=== PATIENT | male | born 1975 | race American Indian/Alaskan Native ===

== ENCOUNTER 2018-06-06 11:06 | Inpatient (IN) | payer MEDICAID, OTHER ==
--- NOTE | 2018-06-06 11:33 | C.PDOC ---
History Of Present Illness SUICIDAL IDEATION W PLAN. HO HEROIN, CRACK ABUSE LAST USE YESTERDAY. DENIES INTENTIONAL OD. EXAM PSYCH CALM COOPERATIVE DEPRESSED +SI NO ACTIVE PSYCHOSIS, INTOX Time Seen by Provider: 06/06/18 11:19 Chief Complaint (Nursing): Psychiatric Evaluation History Per: Patient History/Exam Limitations: no limitations Onset/Duration Of Symptoms: Days Current Symptoms Are (Timing): Still Present Severity: Moderate Past Medical History Reviewed: Historical Data, Nursing Documentation, Vital Signs Vital Signs: Last Vital Signs Temp 97.6 F 06/06/18 11:11 Pulse 81 06/06/18 11:11 Resp 20 06/06/18 11:11 BP 144/90 06/06/18 11:11 Pulse Ox 98 06/06/18 13:07 - Medical History PMH: Depression Surgical History: No Surg Hx Family History: States: No Known Family Hx - Social History Hx Alcohol Use: Yes Hx Substance Use: Yes - Immunization History Hx Tetanus Toxoid Vaccination: No Hx Influenza Vaccination: No Hx Pneumococcal Vaccination: No Review Of Systems Except As Marked, All Systems Reviewed And Found Negative. Constitutional: Negative for: Fever, Chills Psych: Positive for: Suicidal ideation Physical Exam - Physical Exam Appears: No Acute Distress Skin: Normal Color, Warm, Dry Head: Atraumatic, Normacephalic Eye(s): bilateral: Normal Inspection Respiratory: Other (NARD) Neurological/Psych: Other (calm, cooperative, depressed, +SI, no active psychosis) ED Course And Treatment - Laboratory Results Result Diagrams: 06/06/18 11:34 06/06/18 11:34 ECG: Interpreted By Al ECG Rhythm: Sinus Rhythm ECG Interpretation: Normal Rate From EC O2 Sat by Pulse Oximetry: 98 (RA) Pulse Ox Interpretation: Normal Progress - Re-Evaluation Re-evaluation Note: 06/06/18 13:06 MED CLEAR FOR CRISIS EVAL. CRISIS NOTIFIED - Data Reviewed Data Reviewed: Lab, Old records Medical Decision Making Medical Decision Making: Plan: --Labs --ECG Disposition Counseled Patient/Family Regarding: Studies Performed, Diagnosis - Disposition Disposition: HOSPITALIZED Disposition Time: 13:11 Condition: STABLE Forms: [facility] (Pashto) - POA Present On Arrival: None - Clinical Impression Clinical Impression: Polysubstance abuse, Suicidal ideation - Scribe Statement The provider has reviewed the documentation as recorded by the Kathyajamila Tellez Provider Attestation: All medical record entries made by the Bessy were at my direction and personally dictated by me. I have reviewed the chart and agree that the record accurately reflects my personal performance of the history, physical exam, medical decision making, and the department course for this patient. I have also personally directed, reviewed, and agree with the discharge instructions and disposition. Decision To Admit - Pt Status Changed To: Hospital Disposition Of: Inpatient - Admit Certification Admit to Inpatient:: After my assessment, the patient will require hospitalization for at least two midnights. This is because of the severity of symptoms shown, intensity of services needed, and/or the medical risk in this patient being treated as an outpatient. - InPatient: Physician Admission Certification: I certify that this patient requires 2 or more midnights of care for the following reason:: SEE NOTE - . Bed Request Type: Psychiatry Admitting Physician: Damian Fajardo Patient Diagnosis: Polysubstance abuse, Suicidal ideation
[2018-06-06 11:43] LABS: BASO % 0.6 % (0.0-2.0); EOS # 0.1 K/uL (0.0-0.7); EOS % 2.5 % (0.0-4.0); HEMOGLOBIN 14.7 g/dL (12.0-18.0); LYMPH # 2.6 K/uL (1.0-4.3); LYMPH % 43.2 % (20.0-40.0); MEAN CORPUSCULAR HEMOGLOBIN 28.5 pg (27.0-31.0); MEAN CORPUSCULAR HGB CONC 33.5 g/dL (33.0-37.0); MEAN PLATELET VOLUME 8.3 fL (7.2-11.7); MONO # 0.4 K/uL (0.0-0.8); MONO % 7.2 % (0.0-10.0); NEUT # 2.7 K/uL (1.8-7.0); NEUT % 46.5 % (50.0-75.0); NRBC % 0.1 % (0.0-2.0); RBC 5.17 Mil/uL (4.40-5.90); RED CELL DISTRIBUTION WIDTH 14.1 % (11.5-14.5); WHITE BLOOD COUNT 5.9 K/uL (4.8-10.8)
[2018-06-06 11:51] LABS: ACETAMINOPHEN < 10.0 ug/mL (10.0-30.0); ALB/GLOB RATIO 1.8 (1.0-2.1); ALBUMIN 4.2 g/dL (3.5-5.0); ALT/SGPT 23 U/L (21-72); AST/SGOT 13 U/L (17-59); BLOOD UREA NITROGEN 15 mg/dL (9-20); CALCIUM 9.2 mg/dl (8.6-10.4); GFR NON-AFRICAN AMERICAN > 60; SALICYLATE < 1.0 mg/dL 1
[2018-06-06 12:39] LABS: BARBITURATES, UR NEGATIVE (NEGATIVE); BENZODIAZEPINES, UR NEGATIVE (NEGATIVE); OPIATES, UR NEGATIVE (NEGATIVE); PHENCYCLIDINE, UR NEGATIVE (NEGATIVE)
--- NOTE | 2018-06-06 13:56 | PCM.BM ---
<ThomasBonnie - Last Filed: 06/06/18 13:55> Treatment Plan Problems - Problems identified on initial assessmt Suicidal Ideations Date Initiated: 06/06/18 Time Initiated: 13:55 Assessment reference: NA Status: Active Depression Date Initiated: 06/06/18 Time Initiated: 13:56 Assessment reference: NA Status: Active Treatment assets and liabiliti Patient Assests: cooperative, educated, insightful, motivated, self-reliant, ADL independent, physically healthy Patient Liabilities: live alone, physical pain, poor support system, relationship conflicts, substance abuse - Milieu Protocol Maintain good personal hygiene: daily Encourage regular showers, daily Remind patient to perform daily oral care, daily Assist patient to perform ADL's Maintain personal safety: every shift Educate patient to report safety concerns to staff, every shift Monitor environment for contraband/sharps Medication safety: Monitor for expected outcome, potential side effects: every shift, Assess barriers to learning: every shift, Assess readiness for medication education: every shift <Magali Marie - Last Filed: 06/07/18 11:18> Family Contact Family involvement: Famliy/SO not involved - Goals for Treatment Patient goals for treatment: "I don't know." Discharge/Continuing Care - Education Needs Education Needs: Patient Medication, Patient Coping Skills, Patient Placement options, Patient Community resources - Discharge Discharge Criteria: Tolerates medication w/o severe side effects, No longer exhibiting s/s of withdrawal, Reduction of target symptoms Discharge to:: Home - Treatment Team Participation Discussed with Family/SO: No Was Patient/Family/SO present at Treatment Team Meeting: Yes <Jaz Lu - Last Filed: 06/08/18 09:38> - Diagnosis (1) Major depression Status: Acute Interventions: 06/08/18 09:37 * Assess/adjust medications daily and /or as needed * See patient on an individual basis 7x/week to assess symptoms of depression * Monitor for side effects & effectiveness of medications * (2) Cocaine use disorder, severe, dependence Status: Acute Interventions: 06/08/18 09:38 * Assess 7x/week regarding severity of withdrawal * Educate regarding risks, benefits, side effects and alternatives of medications * Use Motivational Interviewing for abstinence * Use CBT for relapse prevention * Medication management for withdrawal symptoms * Encourage medication assisted treatment *
[2018-06-06] MEDS ORDERED: Pneumococcal 23-Valent Vaccine IM ONE (15:43)
--- NOTE | 2018-06-07 16:34 | PCM.PSYCH ---
Initial Psychiatric Evaluation - Initial Psychiatric Evaluation Type of Admission: Voluntary Legal Status: Capacity Chief Complaint (in patient's own words): "I am depressed." History of Present Illness and Precipitating Events: Pt is seen, chart reviewed, case discussed with staff. Pt is a 42 y/o male who presented to the ED last night for depressed mood and S/ I. 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 Pt has been suffering from severe depressed mood for the past 3 days but reports a depressive episode for the past 2 months; pt reports hopelessness, guilt, anhedonia, and decreased concentration and energy. Pt reports S/I with a plan of drug overdose. Pt states that he is feeling anxious and says that he is overthinking everything , is nervous, and has clammy hands. Pt has been abusing alcohol for the past couple of weeks; pt drinks 5-6 beers/ day. Pt has a hx of crack cocaine abuse; pt smokes 5-6 cigarettes/day; pt denies opiates, marijuana, or pills. Pt has attended rehab and detox 2x in the past. Pt denies A/H or V/H at the moment. Pt describes and displays significant withdrawal sxs. Pt denies past medical hx; pt is not on medication. Psychiatric family hx is positive on maternal side for drug abuse and schizophrenia. Current Medications: Active Medications Generic Name Dose Route Start Last Admin Trade Name Freq PRN Reason Stop Dose Admin Fluoxetine HCl 20 mg 06/07/18 10:00 06/07/18 10:07 Prozac PO 20 mg DAILY TOMY Administration Gabapentin 300 mg 06/06/18 18:00 06/07/18 13:43 Neurontin PO 300 mg TID TOMY Administration Hydroxyzine HCl 25 mg 06/06/18 22:26 Atarax PO Q4H PRN Anxiety Ibuprofen 600 mg 06/06/18 22:26 Motrin Tab PO Q6H PRN Pain, moderate (4-7) Trazodone HCl 100 mg 06/06/18 22:26 Desyrel PO HS PRN Insomnia Past Psychiatric History - Past Psychiatric History Pertinent Medical Hx (Current Medical&Sleep Prob, Allergies): Allergies Allergy/AdvReac Type Severity Reaction Status Date / Time No Known Allergies Allergy Unverified 08/16/18 11:14 Lamictal 06/06/18 SEROquel 06/06/18 Review of Systems - Psychiatric Psychiatric: Abnormal Sleep Pattern, Anhedonia, Anxiety, Behavioral Changes, Change in Appetite, Depression, Difficulty Concentrating, Hopelessness, Suicidal Ideation. absent: Auditory Hallucinations, Hallucinations, Panic Attacks, Paranoia, Visual Hallucinations, Tactile Hallucinations Mental Status Examination - Personal Presentation Personal Presentation: Looks stated age - Affect Affect: Flat - Motor Activity Motor Activity: Psychomotor Retardation - Reliability in Providing Information Reliability in Providing Information: Fair - Speech Speech: Organized - Mood Mood: Depressed, Anxious - Formal Thought Process Formal Thought Process: No Impairment - Obsessions/Compulsions Obsessions: No Compulsions: No - Cognitive Functions Orientation: Person, Place, Situation, Time Sensorium: Drowsy - Risk Risk: Suicidal DSM 5 DX - DSM 5 DSM 5 Diagnosis: Major Depressive Disorder, recurrent, severe w/o psychotic features Cocaine Use Disorder, severe - Recommended/Plan of Treatment Treatment Recommendations and Plan of Treatment: Start Prozac 20 mg daily for depression, Neurontin 300 mg for anxiety, Atarax 25 mg for anxiety As need medications All risks, benefits and alternatives of the meds discussed, and the pt agreed and understood. Attend groups and activities Individual therapy daily Psychoeducation and support daily Encourage compliance with meds and after care Refer to outpatient program Teach healthy lifestyle methods, i.e. diet, exercise, meditation Smoking cessation and patch if needed 35 min
--- NOTE | 2018-06-08 22:29 | PCM.PYCHPN ---
Psychiatric Progress Note - Psychiatric Progress Note Patient seen today, length of contact: 20 MIN Patient Chief Complaint: I'M STILL DEPRESSED Problems Identified/Issues Discussed: PT SEEN AND EXAMINED DISCUSSED WITH STAFF DISCUSSED WITH PT PROZAC TAKES 4-6 WEEKS TO HAVE AN EFFECT USUALLY AND NEURONTIN NEEDS TO REACH A CERTAIN BLOOD LEVEL DISCUSSED SIDE EFFECTS AND BLOOD BRAIN BARRIER ALSO DEPRESSED BECAUSE WAS USING COCAINE AND DOPAMINE DEPLETED Medical Problems: NONE NOTED OR REPORTED Diagnostic Results: REVIEWED DSM 5 Symptoms Update: DEPRESSION ANXIETY ANHEDONIA ANERGY AMOTIVATION Medication Change: No Medical Record Reviewed: Yes Mental Status Examination - Cognitive Function Orientation: Person, Place, Time Memory: Intact Attention: WNL Concentration: WNL Association: WNL Fund of Knowledge: WNL - Mood Mood: Depressed, Anxious - Affect Affect: Flat - Speech Speech: Appropriate - Formal Thought Process Formal Thought Process: No Impairment - Suicidal Ideation Suicidal Ideation: No - Homicidal Ideation Homicidal Ideation: No Goal/Treatment Plan - Goal/Treatment Plan Need for Continued Stay: Remain at risks for inpatient hospitalization, Discharge may exacerbated symptoms Progress Toward Problem(s) and Goals/Treatment Plan: MDD PROZAC NEURONTIN CBT OR GROUPMILIEU AND RECREATIONAL THERAPY PSYCHEDUCATION SUPPORTIVE PSYCHOTHERAPY COCAINE USE DISORDER OR CBT GROUPMILIEU AND RECREATIONAL THERAPY SUPPORTIVE PSYCHOTHERAPY Estimated Date of D/C: 06/16/18 - Smoking Cessation Smoking Cessation Initiated: No
--- NOTE | 2018-06-10 00:49 | PCM.PYCHPN ---
Psychiatric Progress Note - Psychiatric Progress Note Patient seen today, length of contact: 20 MIN Patient Chief Complaint: I WHEN WILL I START TO FEEL BETTER? Problems Identified/Issues Discussed: PT SEEN AND EXAMINED DISCUSSED WITH STAFF DISCUSSED WITH PT PROZAC TAKES 4-6 WEEKS TO HAVE AN EFFECT USUALLY AND NEURONTIN NEEDS TO REACH A CERTAIN BLOOD LEVEL DISCUSSED SIDE EFFECTS AND BLOOD BRAIN BARRIER ALSO DEPRESSED BECAUSE WAS USING COCAINE AND DOPAMINE DEPLETED DISCUSSED POST ACUTE WITHDRAWAL SYNDROME Medical Problems: NONE NOTED OR REPORTED Diagnostic Results: REVIEWED Medication Change: No Medical Record Reviewed: Yes Mental Status Examination - Cognitive Function Orientation: Person, Place, Situation, Time Memory: Intact Attention: WNL Concentration: WNL Association: WN Fund of Knowledge: WNL - Mood Mood: Depressed - Affect Affect: Flat - Speech Speech: Appropriate - Formal Thought Process Formal Thought Process: No Impairment - Suicidal Ideation Suicidal Ideation: No - Homicidal Ideation Homicidal Ideation: No Goal/Treatment Plan - Goal/Treatment Plan Need for Continued Stay: Remain at risks for inpatient hospitalization, Discharge may exacerbated symptoms Progress Toward Problem(s) and Goals/Treatment Plan: MDD PROZAC NEURONTIN CBT CO GROUP MILIEU AND RECREATIONAL THERAPY PSYCHEDUCATION SUPPORTIVE PSYCHOTHERAPY COCAINE USE DISORDER CO CBT GROUP MILIEU AND RECREATIONAL THERAPY SUPPORTIVE PSYCHOTHERAPY Estimated Date of D/C: 06/16/18 - Smoking Cessation Smoking Cessation Initiated: No
[2018-06-10 06:14] VITALS: O2SAT 98
--- NOTE | 2018-06-10 10:04 | PCM.PYCHPN ---
Psychiatric Progress Note - Psychiatric Progress Note Patient seen today, length of contact: 20 MIN Patient Chief Complaint: I am still feeling depressed.' Problems Identified/Issues Discussed: Patient seen and evaluated, chart reviewed and discussed with the nurse. Pt still reports depressed mood, and still reports feelings of hopelessness and helplessness. He remained isolated and withdrawn, and confined to his room. He reports some improvement in his sleep and appetite. He denies any AVH or any paranoia. Patient is compliant with medications and denies any side effects. Symptoms are improving but pt needs more time to stabilize. Support and psychoeducation given. Medication Change: No Medical Record Reviewed: Yes Mental Status Examination - Cognitive Function Orientation: Person, Place, Situation, Time Memory: Intact Attention: WNL Concentration: WNL Association: WNL Fund of Knowledge: Poor - Mood Mood: Depressed, Anxious - Affect Affect: Flat - Speech Speech: Appropriate - Formal Thought Process Formal Thought Process: No Impairment - Suicidal Ideation Suicidal Ideation: No - Homicidal Ideation Homicidal Ideation: No Goal/Treatment Plan - Goal/Treatment Plan Need for Continued Stay: Remain at risks for inpatient hospitalization, Discharge may exacerbated symptoms Progress Toward Problem(s) and Goals/Treatment Plan: Major Depressive Disorder, recurrent, severe w/o psychotic features Cocaine Use Disorder, severe Prozac 20 mg daily for depression, Neurontin 300 mg for anxiety, Atarax 25 mg for anxiety As need medications All risks, benefits and alternatives of the meds discussed, and the pt agreed and understood. Attend groups and activities Individual therapy daily Psychoeducation and support daily Encourage compliance with meds and after care Refer to outpatient program Teach healthy lifestyle methods, i.e. diet, exercise, meditation Smoking cessation and patch if needed Estimated Date of D/C: 06/16/18 - Smoking Cessation Smoking Cessation Initiated: No
--- NOTE | 2018-06-11 23:02 | PCM.PYCHPN ---
Psychiatric Progress Note - Psychiatric Progress Note Patient seen today, length of contact: 15 min Patient Chief Complaint: I am still feeling depressed.' Problems Identified/Issues Discussed: Patient seen and evaluated, chart reviewed and discussed with the nurse. As per the staff, pt is improving. He reports some improvement in his depressed mood, and reports some improvement in the feelings of hopelessness and helplessness. However, he remained isolated and withdrawn, and confined to his room. He reports some improvement in his sleep and appetite. He denies any AVH or any paranoia. Patient is compliant with medications and denies any side effects. Symptoms are improving but pt needs more time to stabilize. Support and psychoeducation given. Medication Change: No Medical Record Reviewed: Yes Mental Status Examination - Cognitive Function Orientation: Person, Place, Situation, Time Memory: Intact Attention: WNL Concentration: WNL Association: WNL Fund of Knowledge: Poor - Mood Mood: Depressed, Anxious - Affect Affect: Flat - Speech Speech: Appropriate - Formal Thought Process Formal Thought Process: No Impairment - Suicidal Ideation Suicidal Ideation: No - Homicidal Ideation Homicidal Ideation: No Goal/Treatment Plan - Goal/Treatment Plan Need for Continued Stay: Remain at risks for inpatient hospitalization, Discharge may exacerbated symptoms Progress Toward Problem(s) and Goals/Treatment Plan: Major Depressive Disorder, recurrent, severe w/o psychotic features Cocaine Use Disorder, severe Increase Prozac to 40 mg daily Neurontin 300 mg TID for anxiety, Atarax 25 mg for anxiety Trazodone 100 mg PO QHS for insomnia As need medications All risks, benefits and alternatives of the meds discussed, and the pt agreed and understood. Attend groups and activities Individual therapy daily Psychoeducation and support daily Encourage compliance with meds and after care Refer to outpatient program Teach healthy lifestyle methods, i.e. diet, exercise, meditation Smoking cessation and patch if needed Estimated Date of D/C: 06/16/18
--- NOTE | 2018-06-12 11:01 | RAD ---
Chest x-ray two views History: Discharge requirement. Comparison: None available. Findings: No focal infiltrate or effusion. Bibasilar breast and nipple shadows. Heart size within normal limits. Impression: No focal infiltrate or effusion.
--- NOTE | 2018-06-12 12:51 | PCM.PYCHPN ---
Psychiatric Progress Note - Psychiatric Progress Note Patient seen today, length of contact: 15 min Patient Chief Complaint: "I am not well" Problems Identified/Issues Discussed: The pt is seen, chart reviewed, case discussed with staff. The pt is compliant with medications and reports no side-effects. Symptoms are improving but needs more time to stabilize. After care discussed, support and psychoeducation given. Medication Change: No Medical Record Reviewed: Yes Mental Status Examination - Cognitive Function Orientation: Person, Place, Situation, Time Memory: Intact Attention: WNL Concentration: WNL Association: WNL Fund of Knowledge: Poor - Mood Mood: Depressed, Anxious - Affect Affect: Blunted - Speech Speech: Appropriate - Formal Thought Process Formal Thought Process: No Impairment - Suicidal Ideation Suicidal Ideation: No - Homicidal Ideation Homicidal Ideation: No Goal/Treatment Plan - Goal/Treatment Plan Need for Continued Stay: Remain at risks for inpatient hospitalization, Discharge may exacerbated symptoms Progress Toward Problem(s) and Goals/Treatment Plan: Prozac 20 mg daily for depression, Neurontin 300 mg for anxiety, Atarax 25 mg for anxiety As need medications All risks, benefits and alternatives of the meds discussed, and the pt agreed and understood. Attend groups and activities Individual therapy daily Psychoeducation and support daily Encourage compliance with meds and after care Refer to outpatient program Teach healthy lifestyle methods, i.e. diet, exercise, meditation Smoking cessation and patch if needed Estimated Date of D/C: 06/16/18
[2018-06-12] MEDS: buPROPion 150 mg/24 Hours XL Tab PO SCH (13:12)
[2018-06-13 06:53] VITALS: RESP 18
[2018-06-13] MEDS: buPROPion 150 mg/24 Hours XL Tab PO SCH (10:17)
--- NOTE | 2018-06-13 13:42 | PCM.PYCHPN ---
Psychiatric Progress Note - Psychiatric Progress Note Patient seen today, length of contact: 15 min Patient Chief Complaint: I am feeling little better.' Problems Identified/Issues Discussed: Patient seen and evaluated, chart reviewed and discussed with the nurse. He remained isolated and withdrawn, and confined to his room. He reports some improvement in his depressed mood, and reports some improvement in the feelings of hopelessness and helplessness. He reports some improvement in his sleep and appetite. He denies any AVH or any paranoia. Patient is compliant with medications and denies any side effects. Symptoms are improving but pt needs more time to stabilize. Support and psychoeducation given. Medication Change: Yes (add wellbutrin) Medical Record Reviewed: Yes Mental Status Examination - Cognitive Function Orientation: Person, Place, Situation, Time Memory: Intact Attention: WNL Concentration: WNL Association: WNL Fund of Knowledge: Poor - Mood Mood: Depressed, Anxious - Affect Affect: Flat - Speech Speech: Appropriate - Formal Thought Process Formal Thought Process: No Impairment - Suicidal Ideation Suicidal Ideation: No - Homicidal Ideation Homicidal Ideation: No Goal/Treatment Plan - Goal/Treatment Plan Need for Continued Stay: Remain at risks for inpatient hospitalization, Discharge may exacerbated symptoms Progress Toward Problem(s) and Goals/Treatment Plan: Major Depressive Disorder, recurrent, severe w/o psychotic features Cocaine Use Disorder, severe Increase Prozac to 40 mg daily Neurontin 300 mg TID for anxiety, Atarax 25 mg for anxiety Trazodone 100 mg PO QHS for insomnia As need medications All risks, benefits and alternatives of the meds discussed, and the pt agreed and understood. Attend groups and activities Individual therapy daily Psychoeducation and support daily Encourage compliance with meds and after care Refer to outpatient program Teach healthy lifestyle methods, i.e. diet, exercise, meditation Smoking cessation and patch if needed Estimated Date of D/C: 06/16/18
[2018-06-14 06:50] VITALS: BP 122/75; PULSE 71; TEMP 97.6
--- NOTE | 2018-06-14 09:44 | PCM.PYCHDC ---
Mental Status Examination - Mental Status Examination Orientation: Person, Place, Situation, Time Memory: Intact Mood: Neutral Affect: Constricted Speech: Soft Attention: WNL Concentration: WNL Association: WNL Fund of Knowledge: WNL Formal Thought Process: No Impairment Description of patient's judgement and insight: good, fair Psychotic Thoughts and Behaviors: denies any AVH Suicidal Ideation: No Current Homicidal Ideation?: No Discharge Summary - Discharge Note Reason for Hospitalization: Pt is seen, chart reviewed, case discussed with staff. Pt is a 42 y/o male who presented to the ED last night for depressed mood and S/ I. 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 Pt has been suffering from severe depressed mood for the past 3 days but reports a depressive episode for the past 2 months; pt reports hopelessness, guilt, anhedonia, and decreased concentration and energy. Pt reports S/I with a plan of drug overdose. Pt states that he is feeling anxious and says that he is overthinking everything , is nervous, and has clammy hands. Pt has been abusing alcohol for the past couple of weeks; pt drinks 5-6 beers/ day. Pt has a hx of crack cocaine abuse; pt smokes 5-6 cigarettes/day; pt denies opiates, marijuana, or pills. Pt has attended rehab and detox 2x in the past. Pt denies A/H or V/H at the moment. Pt describes and displays significant withdrawal sxs. Consultations:: List each consultation separately and include: 1. Reason for request. 2. Findings. 3. Follow-up Summary of Hospital Course include:: 1. Description of specific treatment plan utilized for patients during their course of treatmen. 2. Summarize the time- course for resolution of acute symptoms and/or regressed behaviors. 3. Describe issues identified and worked on during hospitalization. 4. Describe medication utilized. 5. Describe medical problems identified and treated. 6. Reassessment of suicide risk Summary of Hospital Course: During the course of his stay, patient (pt) started progressively improving and no longer remained irritable, depressed and suicidal. Wellbutrin, and fluoxetine were started and pt showed a very good response. His mood and anxiety were improved and he started attending groups and meetings and started socializing. Patient denied any feelings of hopelessness, helplessness, and worthlessness, denied any problem with the sleep or appetite, denied suicidal ideation or homicidal ideation. Pt denied any auditory or visual hallucinations. He denied any withdrawal symptoms. Pt was treated with medications along with supportive therapy, milieu therapy and group therapy. Some changes were made in his current medications and patient was discharged on following medications. He tolerated these medications very well and denied any side effects. - Final Diagnosis (DSM 5) Condition upon Discharge: STABLE DSM 5: Major Depressive Disorder, recurrent, severe w/o psychotic features Cocaine Use Disorder, severe Disposition: HOME/ ROUTINE Follow-up Treatment Plan: Followup: He was discharged to the [facility] in [place]. Education: Pt was educated and counseled about the risks and benefits of taking and not taking medications. Pt was educated and counseled about the risks of drinking and abusing drugs. Pt was educated and counseled to go to the ER or call 911 if pt develop suicidal ideation or homicidal ideation, worsening of symptoms or severe side effects of the meds. Prescriptions/Medication Reconciliation: buPROPion XL [Wellbutrin XL] 150 mg PO DAILY #30 t24 FLUoxetine [Prozac] 40 mg PO DAILY #30 cap traZODone [Desyrel] 100 mg PO HS PRN #30 tab PRN Reason: Insomnia - Smoking Cessation Smoking Cessation Medication prescribed: No - Antipsychotic Medications Pt discharged on 2 or more routine antipsychotic medications: No
[2018-06-14] MEDS: buPROPion 150 mg/24 Hours XL Tab PO SCH (10:08)
--- NOTE | 2018-06-15 21:59 | CARD ---
APPROVED REPORT Date of service: 06/06/2018 EKG Measurement Heart [id number] <Conclusion> Normal sinus rhythm Minimal voltage criteria for LVH, may be normal variant Borderline ECG
== END 2018-06-14 12:03 | disposition home or self-care (01) | DRG 430 ==
LOC: C.ER 11:06 → EDBD 11:06 → C.5E 13:12
PROVIDERS: ADMIT Psychiatry & Neurology Psychiatry; ATTEND Psychiatry & Neurology Psychiatry
PROC: GZHZZZZ Group Psychotherapy (ICD-10-PCS; principal; 2018-06-06)
PROC: HZ2ZZZZ Detoxification Services for Substance Abuse Treatment (ICD-10-PCS; 2018-06-06)
PROC: HZ52ZZZ Individual Psychotherapy for Substance Abuse Treatment, Cognitive-Behavioral (ICD-10-PCS; 2018-06-06)
PROC: HZ59ZZZ Individual Psychotherapy for Substance Abuse Treatment, Supportive (ICD-10-PCS; 2018-06-06)
PROC: HZ56ZZZ Individual Psychotherapy for Substance Abuse Treatment, Psychoeducation (ICD-10-PCS; 2018-06-06)
PROC: HZ42ZZZ Group Counseling for Substance Abuse Treatment, Cognitive-Behavioral (ICD-10-PCS; 2018-06-06)
PROC: HZ46ZZZ Group Counseling for Substance Abuse Treatment, Psychoeducation (ICD-10-PCS; 2018-06-06)
PROC: GZ58ZZZ Individual Psychotherapy, Cognitive-Behavioral (ICD-10-PCS; 2018-06-06)
PROC: GZ56ZZZ Individual Psychotherapy, Supportive (ICD-10-PCS; 2018-06-06)
DX: F33.2 Major depressive disorder, recurrent severe without psychotic features (principal); F14.20 Cocaine dependence, uncomplicated; F41.9 Anxiety disorder, unspecified; G47.00 Insomnia, unspecified; R45.851 Suicidal ideations; F17.210 Nicotine dependence, cigarettes, uncomplicated; F10.10 Alcohol abuse, uncomplicated; Y90.0 Blood alcohol level of less than 20 mg/100 ml

== ENCOUNTER 2018-09-16 15:00 | Inpatient (IN) | payer MEDICAID, OTHER ==
--- NOTE | 2018-09-16 15:38 | C.PDOC ---
History Of Present Illness 43 years old male with PMHx of depression (4 months ago) presents to ED for complaints of suicidal ideation with plan (overdose). Denies HI or any physical complaints. Time Seen by Provider: 09/16/18 15:17 Chief Complaint (Nursing): Psychiatric Evaluation History Per: Patient History/Exam Limitations: no limitations Onset/Duration Of Symptoms: Hrs Current Symptoms Are (Timing): Still Present Suicide/Self Injury Attempted (Context): None Associated Symptoms: Depression, Suicidal Thoughts, Suicidal Plan Involuntary Hold By: None Recent travel outside of the [place]: No Past Medical History Reviewed: Historical Data, Nursing Documentation, Vital Signs Vital Signs: Last Vital Signs Temp 98.6 F 09/16/18 15:10 Pulse 90 09/16/18 15:10 Resp 18 09/16/18 15:10 BP 139/81 09/16/18 15:10 Pulse Ox 98 09/16/18 15:10 - Medical History PMH: Anxiety, Depression, Seizures (x1 episode in 2007-cause unknown) - [facility] DETOXIFICATION SERVICES FOR SUBSTANCE ABUSE TREATMENT (06/06/18) GROUP EMERGENCY RESPONSE TECHNICIAN FOR SUBSTANCE ABUSE TREATMENT, PSYCHOEDUCATION (06/06/18) GROUP EMERGENCY RESPONSE TECHNICIAN FOR SUBSTANCE ABUSE, COGNITIVE BEHAVIORAL (06/06/18) GROUP PSYCHOTHERAPY (06/06/18) INDIV PSYCHOTHERAPY FOR SUBSTANCE ABUSE TREATMENT, SUPPORT (06/06/18) INDIV PSYCHOTHERAPY FOR SUBSTANCE ABUSE, COGNITIV BEHAVIORAL (06/06/18) INDIV PSYCHOTHERAPY FOR SUBSTANCE ABUSE, PSYCHOEDUCATION (06/06/18) INDIVIDUAL PSYCHOTHERAPY, COGNITIVE-BEHAVIORAL (06/06/18) INDIVIDUAL PSYCHOTHERAPY, SUPPORTIVE (06/06/18) Family History: States: No Known Family Hx - Social History Hx Alcohol Use: Yes Hx Substance Use: Yes - Immunization History Hx Tetanus Toxoid Vaccination: No Hx Influenza Vaccination: No Hx Pneumococcal Vaccination: No Review Of Systems Constitutional: Negative for: Fever, Chills Gastrointestinal: Negative for: Nausea, Vomiting, Abdominal Pain, Diarrhea Skin: Negative for: Rash Neurological: Negative for: Weakness, Numbness Psych: Positive for: Suicidal ideation Physical Exam - Physical Exam Appears: Non-toxic, No Acute Distress Skin: Normal Color, Warm, Dry, No Rash Head: Atraumatic, Normacephalic Eye(s): bilateral: Normal Inspection, PERRL, EOMI Oral Mucosa: Moist Neck: Normal ROM, Supple Chest: Symmetrical, No Tenderness Cardiovascular: Rhythm Regular, No Murmur Respiratory: Normal Breath Sounds, No Rales, No Rhonchi, No Wheezing Gastrointestinal/Abdominal: Soft, No Tenderness, No Distention Extremity: Normal ROM Extremity: Bilateral: Atraumatic, Normal Color And Temperature, Normal ROM Pulses: Left Radial: Normal, Right Radial: Normal Neurological/Psych: Oriented x3, Normal Speech Gait: Steady ED Course And Treatment - Laboratory Results Result Diagrams: 09/16/18 15:47 09/16/18 15:47 O2 Sat by Pulse Oximetry: 98 (RA) Pulse Ox Interpretation: Normal Progress Note: Patient was medically cleared, evaluated by abatement worker and accepted by for Psychiatric floor admission. Medical Decision Making Medical Decision Making: Plan: * Blood work * Urinalysis * Crisis Notified Disposition - Disposition Disposition: HOSPITALIZED Disposition Time: 17:34 Condition: STABLE Forms: [facility] (Yakut) - Clinical Impression Clinical Impression: Major depression, Suicidal ideation - PA / [employer] PILOT / Resident Statement MD/DO has reviewed & agrees with the documentation as recorded. - Scribe Statement The provider has reviewed the documentation as recorded by the Scribe Keven Lara All medical record entries made by the Scribe were at my direction and personally dictated by me. I have reviewed the chart and agree that the record accurately reflects my personal performance of the history, physical exam, medical decision making, and the department course for this patient. I have also personally directed, reviewed, and agree with the discharge instructions and disposition. Decision To Admit - Pt Status Changed To: Hospital Disposition Of: Inpatient - Admit Certification Admit to Inpatient:: After my assessment, the patient will require hospitalization for at least two midnights. This is because of the severity of symptoms shown, intensity of services needed, and/or the medical risk in this patient being treated as an outpatient. - InPatient: Physician Admission Certification: I certify that this patient requires 2 or more midnights of care for the following reason:: Patient will need more than 2 days for an admission - . Bed Request Type: Psychiatry Admitting Physician: Abril Tariq Patient Diagnosis: Suicidal ideation, Major depression
[2018-09-16 15:55] LABS: BASO % 0.6 % (0.0-2.0); EOS # 0.2 K/uL (0.0-0.7); EOS % 2.3 % (0.0-4.0); HEMOGLOBIN 15.5 g/dL (12.0-18.0); LYMPH # 2.1 K/uL (1.0-4.3); LYMPH % 25.1 % (20.0-40.0); MEAN CELL VOLUME 85.8 fL (80.0-94.0); MEAN CORPUSCULAR HEMOGLOBIN 29.1 pg (27.0-31.0); MEAN CORPUSCULAR HGB CONC 33.9 g/dL (33.0-37.0); MEAN PLATELET VOLUME 8.2 fL (7.2-11.7); MONO # 0.6 K/uL (0.0-0.8); MONO % 7.2 % (0.0-10.0); NEUT # 5.4 K/uL (1.8-7.0); NEUT % 64.8 % (50.0-75.0); RBC 5.33 Mil/uL (4.40-5.90); RED CELL DISTRIBUTION WIDTH 13.3 % (11.5-14.5); WHITE BLOOD COUNT 8.3 K/uL (4.8-10.8)
[2018-09-16 15:59] LABS: URINE BACTERIA OCC (<OCC); URINE BILIRUBIN NEGATIVE (NEGATIVE); URINE BLOOD NEGATIVE (NEGATIVE); URINE CLARITY Clear (Clear); URINE COLOR Yellow (YELLOW); URINE GLUCOSE (UA) NORMAL (Normal); URINE LEUKOCYTE ESTERASE NEG Leu/uL (Negative); URINE PROTEIN 1+ mg/dL (NEGATIVE)
[2018-09-16 16:08] LABS: ALB/GLOB RATIO 1.5 (1.0-2.1); ALBUMIN 4.6 g/dL (3.5-5.0); ALT/SGPT 62 U/L (21-72); AST/SGOT 46 U/L (17-59); BLOOD UREA NITROGEN 20 mg/dL (9-20); CALCIUM 8.9 mg/dl (8.6-10.4); GFR NON-AFRICAN AMERICAN > 60
[2018-09-16 16:19] LABS: BARBITURATES, UR NEGATIVE (NEGATIVE); BENZODIAZEPINES, UR NEGATIVE (NEGATIVE); OPIATES, UR NEGATIVE (NEGATIVE); PHENCYCLIDINE, UR NEGATIVE (NEGATIVE)
[2018-09-16 17:55] VITALS: O2SAT 99
--- NOTE | 2018-09-16 18:38 | PCM.BM ---
<CruzHildan - Last Filed: 09/16/18 18:37> Treatment Plan Problems - Problems identified on initial assessmt Depression Date Initiated: 09/16/18 Time Initiated: 18:38 Assessment reference: NA Status: Active Treatment assets and liabiliti Patient Assests: cooperative, educated, insightful, motivated, self-reliant, ADL independent, physically healthy Patient Liabilities: financial problems, substance abuse - Milieu Protocol Maintain good personal hygiene: daily Encourage regular showers, daily Remind patient to perform daily oral care, daily Assist patient to perform ADL's Conduct patient checks and document Observation sheet: Q15 minutes Maintain personal safety: every shift Educate patient to report safety concerns to staff, every shift Monitor environment for contraband/sharps Medication safety: Monitor for expected outcome, potential side effects: every shift, Assess barriers to learning: every shift, Assess readiness for medication education: every shift <aJz Lu - Last Filed: 09/19/18 08:59> - Diagnosis (1) Major depression Status: Acute Interventions: 09/18/18 08:59 * Assess/adjust medications daily and /or as needed * See patient on an individual basis 7x/week to assess symptoms of depression * Monitor for side effects & effectiveness of medications * (2) Cocaine use disorder, severe, dependence Status: Acute Interventions: 09/18/18 08:59 * Educate regarding risks, benefits, side effects and alternatives of medications * Use Motivational Interviewing for abstinence * Use CBT for relapse prevention
[2018-09-17] MEDS: buPROPion 150 mg/24 Hours XL Tab PO SCH (09:19)
[2018-09-18] MEDS: Vitamins A & D Oint UD Foilpak TOP PRN (10:58)
[2018-09-18] MEDS: buPROPion 150 mg/24 Hours XL Tab PO SCH (11:00)
--- NOTE | 2018-09-18 12:40 | PCM.PSYCH ---
Initial Psychiatric Evaluation - Initial Psychiatric Evaluation Type of Admission: Voluntary Legal Status: Capacity Chief Complaint (in patient's own words): "Depressed" History of Present Illness and Precipitating Events: Patient is a 43 year old male who is currently single, lives alone, and is unemployed. He came to the hospital yesterday due to severe depression and suicidal thoughts for the past 3 days. He states that he currently does not have a plan on how he'd commit suicide. He had a previous suicide attempt in 2007 through drug overdose. He reports anhedonia, sadness, anxiety, sleep/appetite problems. The patient also abuses cocaine. He states that he was on a cocaine binge the last few days, where he used a couple of grams. He has been using cocaine for years. He states that his longest period of sobriety was for 7 months. He has been to detox 3-4 times. He has been to a [facility] program for 3 months, but relapsed after he had a slip on a pass and left the program early. He denies excessive alcohol use. He says he smokes a few cigarettes occasionally. Past Psych Hx: Depression. Past Medical Hx: Denies. Past Family Psych Hx: Uncles have depression. Current Medications: Active Medications Generic Name Dose Route Start Last Admin Trade Name Freq PRN Reason Stop Dose Admin Bupropion HCl 150 mg 09/17/18 10:00 09/18/18 11:00 Wellbutrin Xl PO 150 mg DAILY TOMY Administration Chlordiazepoxide 25 mg 09/16/18 19:22 09/17/18 09:19 Librium PO 25 mg Q8 PRN Administration Symptoms of alcohol withdrawl Fluoxetine HCl 20 mg 09/17/18 10:00 09/18/18 10:50 Prozac PO 20 mg DAILY TOMY Administration Gabapentin 300 mg 09/17/18 10:00 09/18/18 10:54 Neurontin PO 300 mg TID TOMY Administration Influenza Virus Vaccine 60 mcg 09/19/18 10:00 Fluzone Quad [id number] IM 09/19/18 10:01 .ONCE ONE Pneumococcal Polyvalent Vaccine 0.5 ml 09/19/18 10:00 Pneumovax 23 Vaccine IM 09/19/18 10:01 .ONCE ONE Trazodone HCl 50 mg 09/16/18 22:00 09/17/18 22:22 Desyrel PO 50 mg HS TOMY Administration Vitamin A 1 ea 09/17/18 22:53 09/18/18 10:58 Vitamin A & D Oint Ud Foilpak TOP 1 ea Q6H PRN Administration dry lips Past Psychiatric History - Past Psychiatric History Previous Treatment History: Inpatient Pertinent Medical Hx (Current Medical&Sleep Prob, Allergies): Allergies Allergy/AdvReac Type Severity Reaction Status Date / Time No Known Allergies Allergy Verified 09/16/18 15:13 No Known Home Med 09/16/18 Review of Systems - Neurological Neurological: UNREMARKABLE - Psychiatric Psychiatric: Abnormal Sleep Pattern, Anhedonia, Anxiety, Depression, Difficulty Concentrating. absent: Hallucinations, Homicidal Ideation, Paranoia, Suicidal Ideation Mental Status Examination - Personal Presentation Personal Presentation: Looks stated age - Affect Affect: Constricted - Motor Activity Motor Activity: Calm - Reliability in Providing Information Reliability in Providing Information: Good - Speech Speech: Organized - Mood Mood: Depressed, Anxious - Formal Thought Process Formal Thought Process: No Impairment - Cognitive Functions Orientation: Person, Place, Situation, Time Sensorium: Alert Attention/Concentration: Easily distracted Estimate of Intelligence: Average Judgement: Intact, as evidence by: Insight regarding need for hospitalization Memory: Recent intact, as evidence by: Ability to recall events of the day, Remote intact, as evidenced by: Abilit to recall sig. life events - Risk Risk: Withdrawal, Diminished functioning - Strength & Assets Inventory Strength & Assets Inventory: Cooperative - Limitations Limitations: Living alone DSM 5 DX - DSM 5 DSM 5 Diagnosis: Major Depression, single, severe. Cocaine Use Disorder, severe. Generalized Anxiety Disorder. - Recommended/Plan of Treatment Treatment Recommendations and Plan of Treatment: Start on Lexapro Resume Wellbutrin XL As needed medications All risks, benefits and alternatives of the meds discussed, and the pt agreed and understood. Attend groups and activities Individual therapy daily Psychoeducation and support daily Encourage compliance with meds and after care Refer to outpatient program Teach healthy lifestyle methods, i.e. diet, exercise, meditation 33 min Projected ELOS: 4-5 days Prognosis: good - Smoking Cessation Smoking Cessation Initiated: Yes
--- NOTE | 2018-09-18 13:06 | PCM.PYCHPN ---
Psychiatric Progress Note - Psychiatric Progress Note Patient seen today, length of contact: 16 min Patient Chief Complaint: "Better today" Problems Identified/Issues Discussed: The pt is seen, chart reviewed, case discussed with staff. The pt is compliant with medications and reports no side-effects. Symptoms are improving but needs more time to stabilize. Pt attends groups and activities. Support given, psycho-education provided. After care discussed. Medication Change: Yes Medical Record Reviewed: Yes Mental Status Examination - Cognitive Function Orientation: Person, Place, Situation, Time Memory: Intact Attention: WNL Concentration: Poor Association: WNL Fund of Knowledge: WNL - Mood Mood: Depressed, Anxious - Affect Affect: Constricted - Speech Speech: Appropriate - Formal Thought Process Formal Thought Process: No Impairment - Suicidal Ideation Suicidal Ideation: No - Homicidal Ideation Homicidal Ideation: No Goal/Treatment Plan - Goal/Treatment Plan Need for Continued Stay: Discharge may exacerbated symptoms, Severe functional impairment Progress Toward Problem(s) and Goals/Treatment Plan: Start on Lexapro Resume Wellbutrin XL As needed medications All risks, benefits and alternatives of the meds discussed, and the pt agreed and understood. Attend groups and activities Individual therapy daily Psychoeducation and support daily Encourage compliance with meds and after care Refer to outpatient program Teach healthy lifestyle methods, i.e. diet, exercise, meditation
[2018-09-19 06:45] VITALS: BP 131/75; PULSE 66; RESP 20; TEMP 97.6
--- NOTE | 2018-09-19 09:34 | PCM.PYCHDC ---
Mental Status Examination - Mental Status Examination Orientation: Person Discharge Summary - Discharge Note Consultations:: List each consultation separately and include: 1. Reason for request. 2. Findings. 3. Follow-up Summary of Hospital Course include:: 1. Description of specific treatment plan utilized for patients during their course of treatmen. 2. Summarize the time- course for resolution of acute symptoms and/or regressed behaviors. 3. Describe issues identified and worked on during hospitalization. 4. Describe medication utilized. 5. Describe medical problems identified and treated. 6. Reassessment of suicide risk Summary of Hospital Course: Patient is a 43 year old male who is currently single, lives alone, and is unemployed. He came to the hospital yesterday due to severe depression and suicidal thoughts for the past 3 days. He states that he currently does not have a plan on how he'd commit suicide. He had a previous suicide attempt in 2007 through drug overdose. He reports anhedonia, sadness, anxiety, sleep/appetite problems. The patient also abuses cocaine. He states that he was on a cocaine binge the last few days, where he used a couple of grams. He has been using cocaine for years. He states that his longest period of sobriety was for 7 months. He has been to detox 3-4 times. He has been to a [facility] program [facility] 3 months, but relapsed after he had a slip on a pass and left the program early. He denies excessive alcohol use. He says he smokes a few cigarettes occasionally. Past Psych Hx: Depression. Past Medical Hx: Denies. Past Family Psych Hx: Uncles have depression. IOP - Diagnosis (1) Major depression Current Visit: Yes Status: Acute (2) Cocaine use disorder, severe, dependence Current Visit: No Status: Acute - Final Diagnosis (DSM 5) Condition upon Discharge: STABLE Disposition: HOME/ ROUTINE Follow-up Treatment Plan: Start on Lexapro Resume Wellbutrin XL As needed medications All risks, benefits and alternatives of the meds discussed, and the pt agreed and understood. Attend groups and activities Individual therapy daily Psychoeducation and support daily Encourage compliance with meds and after care Refer to outpatient program Teach healthy lifestyle methods, i.e. diet, exercise, meditation Prescriptions/Medication Reconciliation: buPROPion XL [Wellbutrin XL] 150 mg PO DAILY #30 t24 Escitalopram [Lexapro] 10 mg PO DAILY #30 tab Gabapentin [Neurontin] 300 mg PO TID #90 cap traZODone [Desyrel] 100 mg PO HS #30 tab
[2018-09-19] MEDS ORDERED: Influenza Vaccine 60 MCG/0.5 ML SYR (3 yr & up) IM ONE (10:00)
[2018-09-19] MEDS ORDERED: Pneumococcal 23-Valent Vaccine IM ONE (10:00)
[2018-09-19] MEDS: buPROPion 150 mg/24 Hours XL Tab PO SCH (10:06)
[2018-09-19] MEDS: Vitamins A & D Oint UD Foilpak TOP PRN (10:07)
== END 2018-09-19 11:19 | disposition home or self-care (01) | DRG 430 ==
LOC: C.ER 15:00 → C.5E 17:32
PROVIDERS: ADMIT Psychiatry & Neurology Psychiatry; ATTEND Psychiatry & Neurology Psychiatry
PROC: HZ52ZZZ Individual Psychotherapy for Substance Abuse Treatment, Cognitive-Behavioral (ICD-10-PCS; principal; 2018-09-16)
PROC: GZHZZZZ Group Psychotherapy (ICD-10-PCS; 2018-09-16)
PROC: HZ59ZZZ Individual Psychotherapy for Substance Abuse Treatment, Supportive (ICD-10-PCS; 2018-09-16)
PROC: HZ56ZZZ Individual Psychotherapy for Substance Abuse Treatment, Psychoeducation (ICD-10-PCS; 2018-09-16)
PROC: HZ42ZZZ Group Counseling for Substance Abuse Treatment, Cognitive-Behavioral (ICD-10-PCS; 2018-09-16)
PROC: HZ46ZZZ Group Counseling for Substance Abuse Treatment, Psychoeducation (ICD-10-PCS; 2018-09-16)
PROC: GZ58ZZZ Individual Psychotherapy, Cognitive-Behavioral (ICD-10-PCS; 2018-09-16)
PROC: GZ56ZZZ Individual Psychotherapy, Supportive (ICD-10-PCS; 2018-09-16)
DX: F32.2 Major depressive disorder, single episode, severe without psychotic features (principal); F14.20 Cocaine dependence, uncomplicated; R45.851 Suicidal ideations; F17.210 Nicotine dependence, cigarettes, uncomplicated; F41.1 Generalized anxiety disorder; Z91.5 Personal history of self-harm; Z81.8 Family history of other mental and behavioral disorders